=== PATIENT | female | born 1950 ===

== ENCOUNTER 2024-12-25 05:10 | Day surgery (SDC) | payer OTHER ==
[~2024-12-25 05:10] MED LIST: LOSARTAN-HCTZ1 EACH PO; NORVASC5 MG PO; SIMVASTATIN5 MG PO
== END 2024-12-25 14:00 | disposition home or self-care (01) ==
LOC: CIR.AMB 05:10
PROVIDERS: ATTEND Internal Medicine
DX: C17.0 Malignant neoplasm of duodenum (principal); K31.89 Other diseases of stomach and duodenum; R10.9 Unspecified abdominal pain